=== PATIENT | female | born 1980 | race Caucasian/White ===

== ENCOUNTER 2017-03-24 16:59 | Emergency (ER) | payer OTHER ==
[2017-03-24] MEDS ORDERED: TYLENOL ONE (17:37)
[2017-03-24] MEDS ORDERED: TYLENOL PO ONE (17:39)
[2017-03-24 17:58] LABS: Hematocrit 33.8 % (30.3-42.9); Hemoglobin 10.6 gm/dl (10.1-14.3); Mean Corpuscular HGB Conc 32 % (30-34); Mean Corpuscular Hemoglobin 21 pg (28-32); Mean Corpuscular Volume 68 fl (79-97); Platelet Count 256 K/mm3 (140-440); Red Blood Count 4.99 M/mm3 (3.65-5.03); Red Cell Distribution Width 18.6 % (13.2-15.2); White Blood Count 11.9 K/mm3 (4.5-11.0)
[2017-03-24 18:10] LABS: INR 1.04 (0.87-1.13)
[2017-03-24 18:27] LABS: Bacteria,Urine 1+ /HPF (Negative); Bilirubin,Urine NEG (Negative); Blood,Urine LG (Negative); Ketones,Urine NEG (Negative); Leukocyte Esterase,Urine NEG (Negative); Mucus,Urine FEW /HPF; Nitrite,Urine NEG (Negative); Protein,Urine <15 mg/dL mg/dL (Negative); Urobilinogen,Urine < 2.0 mg/dL (<2.0)
[2017-03-24 18:31] LABS: Anion Gap 20 mmol/L; BUN/Creatinine Ratio 26; Blood Urea Nitrogen 13 mg/dL (7-17); Calcium 8.9 mg/dL (8.4-10.2); Carbon Dioxide 23 mmol/L (22-30); Chloride 100.8 mmol/L (98-107); Creatine Kinase 94 units/L (30-135); Glucose 125 mg/dL (65-100); Potassium 4.4 mmol/L (3.6-5.0); Sodium 139 mmol/L (137-145)
[2017-03-24] MEDS ORDERED: NACL ONE (23:19)
--- NOTE | 2017-03-24 23:43 | Emergency Department Report ---
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 She has had swelling beneath her neck for 2 days which is causing pain at rest, pain to eat and swallow. She is also having fever of 100.5 MD Complaint: neck pain -: Gradual, days(s) (2) Place: home Severity: moderate Quality: dull Consistency: constant Improves With: none Worsens With: movement of neck, swallowing Context: unknown - Related Data Allergies Allergy/AdvReac Type Severity Reaction Status Date / Time No Known Allergies Allergy Unverified 03/24/17 17:16 ED Review of Systems ROS: Stated complaint: NECK PAIN, FEVER Other details as noted in HPI ED Past Medical Hx - Past Medical History Previous Medical History?: Yes Additional medical history: Ranula of floor mouth - Surgical History Past Surgical History?: Yes Additional Surgical History: Ranula of floor mouth in 2016 - Social History Smoking Status: Never Smoker Substance Use Type: None ED Physical Exam - General Limitations: Language Barrier (Lao) General appearance: alert, in no apparent distress - Head Head exam: Present: atraumatic, other (large submandibular swelling both sides of neck) - Eye Eye exam: Present: normal appearance, EOMI. Absent: scleral icterus, conjunctival injection - ENT ENT exam: Present: mucous membranes moist, other (malodorus breath, sublingual swelling.) - Neck Neck exam: Present: tenderness (submandibular), full ROM (but painful), lymphadenopathy, other (submandibular swelling) - Respiratory Respiratory exam: Present: normal lung sounds bilaterally. Absent: respiratory distress, wheezes, rales - Cardiovascular Cardiovascular Exam: Present: normal rhythm, tachycardia. Absent: systolic murmur, diastolic murmur, rubs, gallop - GI/Abdominal GI/Abdominal exam: Present: soft, normal bowel sounds - Rectal Rectal exam: Present: deferred - Extremities Exam Extremities exam: Present: normal inspection - Back Exam Back exam: Present: normal inspection, full ROM - Neurological Exam Neurological exam: Present: alert, oriented X3, CN II-XII intact - Psychiatric Psychiatric exam: Present: normal affect, normal mood - Skin Skin exam: Present: warm, dry, intact, normal color. Absent: rash ED Course Vital Signs 03/24/17 11 17:16 21:25 Temperature 100.5 F H 98.7 F Pulse Rate 107 H 98 H Respiratory 16 16 Rate Blood Pressure 113/67 105/62 O2 Sat by Pulse 95 100 Oximetry - Reevaluation(s) Reevaluation #1: 03/25/17 00:32 [facility] paged for pt transfer to ENT. Waiting for call back Reevaluation #3: 03/25/17 01:18 pt accepted for transfer to [facility] ENT Dr Gregorio ED Medical Decision Making - Lab Data Result diagrams: 03/24/17 17:45 03/24/17 17:45 Critical care attestation.: If time is entered above; I have spent that time in minutes in the direct care of this critically ill patient, excluding procedure time. ED Disposition Clinical Impression: Sublingual space abscess Fever Qualifiers: Fever type: unspecified Qualified Code(s): R50.9 - Fever, unspecified Disposition: DC/TX-70 ANOTHER TYPE HLTHCARE Is pt being admited?: Yes Condition: Stable Referrals: PRIMARY CARE, [Primary Care Provider] - 3-5 Days Time of Disposition: 01:15 (Dr Gregorio and dr Ramachandran of [facility] has accepted the pt. pt will be transferred to the ED)
--- NOTE | 2017-03-25 00:13 | Cat Scan Report ---
FINAL REPORT EXAM: CT NECK W CON HISTORY: swelling/pain/ possible infection TECHNIQUE: Routine axial imaging was obtained of the soft tissues of the neck extending to the skull base to the thoracic inlet following intravenous injection of 100 cc of Omnipaque 300. Sagittal and coronal reconstructions were obtained. There are no previous studies available for comparison. FINDINGS: There is a peripherally enhancing cystic structure in the sublingual space measuring 4.5 cm x 2.5 cm x 2.2 cm. This is an abscess until proven otherwise. There is surrounding induration of the adjacent soft tissues. There are benign-appearing shoddy lymph nodes in the submandibular, internal jugular and spinal accessory chains. The submandibular and parotid glands appear normal. The vascular structures enhance normally. The airway is unremarkable. Along the skull base the visualized sinuses are clear. The mastoid air cells are well pneumatized. The retropharyngeal space appears normal. The thyroid gland appears normal. The lung apices are clear. The skeletal structures are unremarkable. IMPRESSION: Abscess in the sublingual space relatively midline measuring 4.5 cm x 2.5 cm x 2.2 cm as described with surrounding edematous changes. No evidence of significant lymphadenopathy. No evidence of airway compromise.
[2017-03-25] MEDS ORDERED: CLEOCIN 600 MG/50 mL 600 MG/50 ML BAG IV ONE (00:37)
[2017-03-25] MEDS ORDERED: TORADOL IV ONE (00:38)
[2017-03-25] MEDS ORDERED: NACL 0.9% 1000 ML 1,000 ML IV ONE (01:16)
[2017-03-25 03:30] VITALS: BP 110/65
== END 2017-03-25 03:05 | disposition other institution (70) ==
LOC: ED 16:59
DX: K12.2 Cellulitis and abscess of mouth (principal); R50.9 Fever, unspecified
CPT/HCPCS: 36415; 70491; 80048; 81001; 82140; 82550; 84703; 85027; 85610; 96365; 96375; 99285; J1885; J7030; Q9967